=== PATIENT | female | born 1975 | race Caucasian/White ===

== ENCOUNTER 2024-06-25 10:34 | Emergency (ER) | payer MEDICAID ==
[~2024-06-25] VITALS: Ht 157.5 cm; Wt 70.0 kg
[2024-06-25 10:41] VITALS: TEMP 37.1; O2SAT 100; O2SAT 99
[2024-06-25 12:22] LABS: HEMATOCRIT. 35.4 % (36.0-48.0); HEMOGLOBIN. 11.8 g/dL (12.0-16.0); MEAN CORPUSCULAR HEMOGLOBIN 29.8 pg (28.0-32.0); MEAN CORPUSCULAR HGB CONC 33.4 g/dL (31.0-37.0); PLATELET 190 x1000/uL (130-400); RED BLOOD CELL COUNT 3.98 mill/uL (4.2-5.4); RED CELL DISTRIBUTION WIDTH 13.3 % (11.6-14.6); WHITE BLOOD COUNT 10.4 x1000/uL (4.5-11.0)
[2024-06-25 12:23] LABS: DIFFERENTIAL COMMENT 1
[2024-06-25 12:31] LABS: CHLORIDE 102 mEq/L (98-107); POTASSIUM 3.9 mEq/L (3.5-5.1); SODIUM 135 mEq/L (136-145)
[2024-06-25 12:32] LABS: CARBON DIOXIDE 24 mEq/L (21-32)
[2024-06-25 12:37] LABS: CREATININE 0.8 mg/dL (0.6-1.0); GLUCOSE 277 mg/dL (70-105); UREA NITROGEN BLOOD 11 mg/dL (9-23)
[2024-06-25 12:39] LABS: ALANINE AMINOTRANSFERASE 92 IU/L (10-49); ALBUMIN 3.9 g/dL (3.2-4.8); ASPARTATE AMINOTRANSFERASE 61 IU/L (<34); BILIRUBIN DIRECT 0.4 mg/dL (<=3.0); BILIRUBIN TOTAL 0.9 mg/dL (0.1-1.0); PROTEIN TOTAL 7.1 g/dL (6.0-8.3)
[2024-06-25 12:41] LABS: THYROID STIMULATING HORMONE 2.44 uIU/mL (0.55-4.78)
[2024-06-25 12:48] LABS: HCG SCREEN NEGATIVE
[2024-06-25 13:14] LABS: PLATELET ESTIMATE NORMAL; TOXIC VACUOLATION 1+
[2024-06-25 14:02] VITALS: BP 124/61; PULSE 103; RESP 18
[2024-06-25] MEDS: KETOROLAC 30MG/ML VIAL IM ONE (14:02)
[2024-06-25 15:04] LABS: CLARITY URINE CLEAR (CLEAR); COLOR URINE YELLOW (YELLOW); GLUCOSE URINE 3+ (NEGATIVE); KETONES URINE 1+ (NEGATIVE); LEUKOCYTE ESTERASE URINE TRACE (NEGATIVE); NITRITE URINE POSITIVE (NEGATIVE); OCCULT BLOOD URINE 1+ (NEGATIVE); PH URINE 7.5 (4.5-8.0); PROTEIN URINE 3+ (NEGATIVE); SPECIFIC GRAVITY URINE 1.023 (1.005-1.030)
[2024-06-25 15:18] LABS: BACTERIA URINE 4+; SQUAMOUS EPITHELIAL CELL URINE 1+ /lpf (RARE/1+); YEAST URINE NONE SEEN
[2024-06-25] MEDS ORDERED: ACET-2708 MT (15:37)
[2024-06-25] MEDS ORDERED: SULF1TAB48 MT (15:37)
== END 2024-06-25 15:48 | disposition home or self-care (01) ==
LOC: ER 10:46
DX: K80.20 Calculus of gallbladder without cholecystitis without obstruction (principal); N12 Tubulo-interstitial nephritis, not specified as acute or chronic
CPT/HCPCS: 99285; 76705; 71045; 80076; 80048; 81003; 84703; 83690; 84443; 85025; 87086; 87186; 87077; 36415; 96372; J1885